=== PATIENT | male | born 1945 | race Caucasian/White ===

== ENCOUNTER 2016-08-01 14:19 | Emergency (ER) | payer MEDICARE, OTHER ==
[2016-08-01] MEDS ORDERED: NITROGLYCERIN 2% PASTE TOP STA (15:46)
[2016-08-01] MEDS ORDERED: NITROGLYCERIN 2% PASTE TOP ONE (15:52)
[2016-08-01] MEDS ORDERED: hydrALAZINE INJ 20 MG/ML VIAL IVP STA (17:52)
[2016-08-01] MEDS ORDERED: IBUPROFEN 800 MG TABLET PO STA (17:52)
[2016-08-01] MEDS ORDERED: hydrALAZINE INJ 20 MG/ML VIAL ONE (17:54)
[2016-08-01] MEDS ORDERED: IBUPROFEN 800 MG TABLET PO ONE (17:54)
== END 2016-08-01 18:18 | disposition home or self-care (01) ==
DX: M25.512 Pain in left shoulder (principal); M79.622 Pain in left upper arm; I10 Essential (primary) hypertension; I25.10 Atherosclerotic heart disease of native coronary artery without angina pectoris; Z95.5 Presence of coronary angioplasty implant and graft
CPT/HCPCS: 36415; 71020; 80053; 82550; 82553; 83690; 84484; 85025; 93005; 93010; 96374; 99284; A9270

== ENCOUNTER 2016-08-18 05:54 | Day surgery (SDC) | payer MEDICARE, OTHER ==
[2016-08-18] MEDS ORDERED: TROPICAMIDE 1% OPHTH 2 ML DROPS OPTH ONE (06:40)
[2016-08-18] MEDS ORDERED: CYCLOPENTOLATE 1% OPHTH DROPS 2 ML OPTH ONE (06:40)
[2016-08-18] MEDS ORDERED: KETOROLAC 0.45% OPHTH DROPS OPTH ONE (06:40)
[2016-08-18] MEDS ORDERED: LACTATED RINGERS 500 ML IV ONE (06:40)
[2016-08-18] MEDS ORDERED: LIDOCAINE-MPF 2% 5 ML VIAL IM ONE (07:45)
[2016-08-18] MEDS ORDERED: TETRACAINE OPHTH DROPS 2 ML OPTH ONE (07:45)
[2016-08-18] MEDS ORDERED: MIDAZOLAM 2 MG/2 ML VIAL IVP ONE (07:45)
[2016-08-18] MEDS ORDERED: BRIMONIDINE 0.2% OPHTH DROPS 5 ML OPTH ONE (07:45)
[2016-08-18] MEDS ORDERED: PROPARACAINE 0.5% OPHTH DROPS 15 ML OPTH ONE (07:45)
[2016-08-18] MEDS ORDERED: EPINEPHrine 1 MG/ML AMP IO ONE (07:45)
[2016-08-18] MEDS ORDERED: PROPOFOL 200 MG/20 ML VIAL IVP ONE (07:45)
[2016-08-18] MEDS ORDERED: levoFLOXacin 0.5% OPHTH DROPS 5 ML OPTH ONE (07:45)
[2016-08-18] MEDS ORDERED: BSS/LIDOCAINE/EPINEPHRINE 1 ML SYRINGE IO ONE (07:46)
[2016-08-18] MEDS ORDERED: CHONDR SULF/HYALURONATE SYRINGE IO ONE (07:46)
== END 2016-08-18 05:55 | disposition home or self-care (01) ==
PROC: 08RK3JZ Replacement of Left Lens with Synthetic Substitute, Percutaneous Approach (ICD-10-PCS; principal; 2016-08-18 07:30)
DX: H25.12 Age-related nuclear cataract, left eye (principal); I10 Essential (primary) hypertension
CPT/HCPCS: 66984; V2632

== ENCOUNTER 2016-09-01 08:48 | Day surgery (SDC) | payer MEDICARE, OTHER ==
[2016-09-01] MEDS ORDERED: LACTATED RINGERS 500 ML IV ONE (09:12)
[2016-09-01] MEDS ORDERED: KETOROLAC 0.45% OPHTH DROPS OPTH ONE (09:15)
[2016-09-01] MEDS ORDERED: TROPICAMIDE 1% OPHTH 2 ML DROPS OPTH ONE (09:15)
[2016-09-01] MEDS ORDERED: CYCLOPENTOLATE 1% OPHTH DROPS 2 ML OPTH ONE (09:15)
[2016-09-01] MEDS ORDERED: LIDOCAINE-MPF 2% 5 ML VIAL IM ONE (10:00)
[2016-09-01] MEDS ORDERED: MIDAZOLAM 2 MG/2 ML VIAL IVP ONE (10:00)
[2016-09-01] MEDS ORDERED: PROPOFOL 200 MG/20 ML VIAL IVP ONE (10:00)
[2016-09-01] MEDS ORDERED: CHONDR SULF/HYALURONATE SYRINGE IO ONE (10:04)
[2016-09-01] MEDS ORDERED: BRIMONIDINE 0.2% OPHTH DROPS 5 ML OPTH ONE (10:04)
[2016-09-01] MEDS ORDERED: BSS/LIDOCAINE/EPINEPHRINE 1 ML SYRINGE IO ONE (10:04)
[2016-09-01] MEDS ORDERED: PROPARACAINE 0.5% OPHTH DROPS 15 ML OPTH ONE (10:04)
[2016-09-01] MEDS ORDERED: levoFLOXacin 0.5% OPHTH DROPS 5 ML OPTH ONE (10:04)
[2016-09-01] MEDS ORDERED: EPINEPHrine 1 MG/ML AMP IO ONE (10:04)
== END 2016-09-01 08:49 | disposition home or self-care (01) ==
PROC: 08RJ3JZ Replacement of Right Lens with Synthetic Substitute, Percutaneous Approach (ICD-10-PCS; principal; 2016-09-01 10:05)
DX: H25.11 Age-related nuclear cataract, right eye (principal); I10 Essential (primary) hypertension
CPT/HCPCS: 66984; V2632